=== PATIENT | male | born 1990 | race African-American/Black ===

== ENCOUNTER 2017-09-18 22:05 | Emergency (ER) | payer SELFPAY ==
[~2017-09-18] VITALS: Ht 180.3 cm; Wt 73.6 kg
[2017-09-18] MEDS ORDERED: ONDANSETRON 2MG/ML, 2ML ONE (23:26)
[2017-09-18 23:27] LABS: HEMATOCRIT 54.4 % (39.2-51.8); HEMOGLOBIN 18.5 g/dL (13.7-18.0); WHITE BLOOD COUNT 11.7 x10^3/uL (3.4-10)
[2017-09-18] MEDS ORDERED: SODIUM CHLORIDE 0.9% 1,000ML IVBOLUS ONE (23:30)
[2017-09-18] MEDS ORDERED: ONDANSETRON 2MG/ML, 2ML IVPush ONE (23:30)
[2017-09-18 23:39] LABS: ASPARTATE AMINO TRANSFERASE 25 U/L (15-37); BLOOD UREA NITROGEN 25 mg/dL (7-18)
[2017-09-19 00:48] VITALS: BP 141/101
== END 2017-09-19 00:52 | disposition home or self-care (01) ==
LOC: ED 23:59
DX: A09 Infectious gastroenteritis and colitis, unspecified (principal)
CPT/HCPCS: 36415; 80053; 83690; 85025; 93005; 96361; 96374; 99285; J2405; J7030

== ENCOUNTER → 2018-12-03 | Emergency (ER) | payer SELFPAY ==
[~2018-12-03] VITALS: Ht 177.8 cm; Wt 84.0 kg
[~2018-12-03] MED LIST: KETOROLAC 30 MG/1 ML IM ONE; KETOROLAC 30 MG/1 ML ONE
[2018-12-03 08:01] VITALS: BP 132/82
--- NOTE | 2018-12-03 08:08 | NUR ---
PT PRESENTED TO ED WITH RIGHT LOWER BACK PAIN AND LEFT UPPER QUADRANT ABD PAIN. PT STATED HE WAS IN A BASKETBALL TOURNAMENT THIS WEEKEND AND THOUGHT HE MAY PULLED SOMETHING ON THE COURT. PT A&OX4. PT PLACED IN ROOM AND PLACED ON BP AND CONT. PULSE OXIMETER.
[2018-12-03 08:37] LABS: BASOPHILS # (AUTO) 0.05 x10^3/uL (0-0.1); BASOPHILS % (AUTO) 1 % (0-1); EOSINOPHILS # (AUTO) 0.13 x10^3/uL (0-0.4); EOSINOPHILS % (AUTO) 1 % (1-7); LYMPHOCYTES % (AUTO) 37 % (22-44); MD NO; MEAN CORPUSCULAR HEMOGLOBIN 29.4 pg (27.5-34.5); MEAN CORPUSCULAR HGB CONC 33.2 g/dL (33.2-36.2); MEAN CORPUSCULAR VOLUME 88.4 fL (81-97); MEAN PLATELET VOLUME 8.8 fL (7.4-10.4); MONOCYTES # (AUTO) 0.86 x10^3/uL (0.2-0.8); MONOCYTES % (AUTO) 8 % (2-9); NEUTROPHILS # (AUTO) 5.37 x10^3/uL (1.8-6.8); NEUTROPHILS % (AUTO) 53 % (42-75); PLATELET COUNT 221 x10^3/uL (130-400); RED BLOOD COUNT 5.42 x10^6/uL (4.38-5.82); RED CELL DISTRIBUTION WIDTH 14.2 % (9.4-14.8)
[2018-12-03 08:49] LABS: ALANINE AMINOTRANSFERASE 33 U/L (12-78); ALBUMIN 3.8 g/dL (3.4-5.0); ANION GAP 2 mmol/L (5-15); CALCIUM 8.4 mg/dL (8.5-10.1); CHLORIDE 110 mmol/L (98-107); CREATININE 1.18 mg/dL (0.7-1.3)
[2018-12-03 08:51] LABS: ALKALINE PHOSPHATASE 69 U/L (45-117); BILIRUBIN,TOTAL 0.3 mg/dL (0.2-1.0)
[2018-12-03 08:52] LABS: MICROSCOPIC NOT IND
[2018-12-03 08:54] LABS: CULTURE INDICATED? NO
--- NOTE | 2018-12-03 09:22 | NUR ---
Patient/Caregiver given discharge instructions and they have confirmed that they understand the instructions. Patient ambulatory with steady gait.
== END ==
LOC: ED 09:17
DX: S39.012A Strain of muscle, fascia and tendon of lower back, initial encounter (principal); N28.9 Disorder of kidney and ureter, unspecified; R10.32 Left lower quadrant pain; R11.0 Nausea; X58.XXXA Exposure to other specified factors, initial encounter; Y93.89 Activity, other specified; Y92.89 Other specified places as the place of occurrence of the external cause; Y99.8 Other external cause status
CPT/HCPCS: 36415; 80053; 81003; 83690; 85025; 96372; 99283; J1885

== ENCOUNTER 2021-04-04 19:01 | Emergency (ER) | payer SELFPAY ==
[~2021-04-04] VITALS: Ht 180.3 cm; Wt 81.0 kg
[2021-04-04 19:28] VITALS: BP 114/67
[2021-04-04 20:04] LABS: BASOPHILS % (AUTO) 0 % (0-1); EOSINOPHILS % (AUTO) 1 % (1-7); LYMPHOCYTES % (AUTO) 32 % (22-44); MEAN CORPUSCULAR HEMOGLOBIN 30.2 pg (27.5-34.5); MEAN PLATELET VOLUME 8.6 fL (7.4-10.4); MONOCYTES % (AUTO) 8 % (2-9); NEUTROPHILS % (AUTO) 59 % (42-75); PLATELET COUNT 224 x10^3/uL (130-400); RED CELL DISTRIBUTION WIDTH 13.9 % (9.4-14.8)
[2021-04-04 20:18] LABS: ALANINE AMINOTRANSFERASE 28 U/L (12-78); ANION GAP 2 mmol/L (5-15); CALCIUM 8.7 mg/dL (8.5-10.1); CHLORIDE 108 mmol/L (98-107); CREATININE 1.16 mg/dL (0.7-1.3)
[2021-04-04 20:20] LABS: ALKALINE PHOSPHATASE 65 U/L (45-117); BILIRUBIN,TOTAL 0.5 mg/dL (0.2-1.0); TOTAL PROTEIN 7.5 g/dL (6.4-8.2)
[2021-04-04 20:25] LABS: MICROSCOPIC INDICATED
== END 2021-04-04 23:02 | disposition left against medical advice (07) ==
LOC: ED 19:31
DX: R10.9 Unspecified abdominal pain (principal); R19.7 Diarrhea, unspecified; R11.0 Nausea
CPT/HCPCS: 36415; 80053; 81001; 85025; 87086; 99283